=== PATIENT | female | born 1970 | race African-American/Black ===

== ENCOUNTER 2016-12-07 11:29 | Emergency (ER) | payer MEDICAID ==
[2016-12-07] MEDS ORDERED: OPTIRAY 350 100 ML VIAL HMH IV ONE (11:30)
[2016-12-07] MEDS ORDERED: ONDANSETRON 4 MG VIAL ONE (14:50)
[2016-12-07] MEDS ORDERED: KETOROLAC 30 MG/ML VIAL ONE (14:51)
== END 2016-12-07 18:13 | disposition home or self-care (01) ==
LOC: ER 11:29
DX: R10.9 Unspecified abdominal pain (principal); R93.5 Abnormal findings on diagnostic imaging of other abdominal regions, including retroperitoneum; R16.0 Hepatomegaly, not elsewhere classified
CPT/HCPCS: 36415; 74177; 80053; 81001; 83690; 84703; 85025; 87077; 87088; 87186; 96374; 96375